=== PATIENT | male | born 1975 | race Caucasian/White ===

== ENCOUNTER 2020-09-12 14:25 | Emergency (ER) | payer BC, SELFPAY ==
[2020-09-12 14:25] VITALS: BP 195/112; PULSE 71; RESP 20; TEMP 36.1; O2SAT 98; BMI 31.4
--- NOTE | 2020-09-12 14:39 | CT_ITS ---
STUDY: CT ABDOMEN AND PELVIS WITHOUT CONTRAST REASON FOR EXAM: Male, 45 years old. Sudden onset left flank/LLQ pain, nausea. Hx hypertension. RADIATION DOSAGE (If Supplied By Facility): CTDIvol = ( 14.89 ) mGy, DLP = ( 885.18 ) mGycm TECHNIQUE: Transaxial images were obtained from the dome of the diaphragm to the symphysis pubis without oral contrast, and without intravenous contrast. Sagittal and coronal images were reconstructed. Individualized dose optimization techniques were used for this CT. COMPARISON: None. FINDINGS: The visualized lung bases are unremarkable. The visualized portions of the heart are within normal limits. Normal liver. Normal gallbladder and extrahepatic biliary system. Normal spleen. Normal pancreas. Normal bilateral adrenal glands. Normal right kidney. There are 2 adjacent calculi in the lower pole calyx of the left kidney. The larger measures 3 mm. There is a 2.7 mm calculus in the distal portion of the left ureter. Minimal fullness of the left ureter with left periureteric stranding. Normal visualized stomach. Normal small intestine. Normal colon. The appendix is visualized and appears normal. There is scattered atherosclerotic calcification of the abdominal aorta, without a demonstrated aneurysm. Normal inferior vena cava. Normal retroperitoneum. Normal urinary bladder. Small bilateral inguinal hernias containing fat. Small umbilical hernia containing fat. Normal osseous structures. CT/Abdomen/Pelvis without Cont IMPRESSION: 2.7 mm calculus in the distal portion of the left ureter with minimal fullness of the left ureter and left periureteric stranding. There are 2 adjacent nonobstructive calculi in the lower pole calyx of the left kidney. Electronically Signed: Gorge Garcia, at 15:33 EST , Service support ,
--- NOTE | 2020-09-12 14:40 | ED.VIS.GEN ---
History of Present Illness Chief Complaint: Flank Pain Informant: Patient Narrative: 45-year-old male states this morning began to have a pain in the left flank left upper quadrant of his abdomen. Sharp and stabbing. Nothing seemed to make it better or worse. Eventually started to subside he was doing good until around 1330 hrs. And the pain returned much more severe in the flank. Is now starting to back off. He does note some associated nausea. He denies any blood in the urine or stool. Normal bowel movements. No fevers. - Past Medical History (1) Elevated blood pressure reading in office with diagnosis of hypertension Status: Chronic (2) Paroxysmal atrial fibrillation Status: Chronic Past Medical History - Allergies and Home Meds Allergies/Adverse Reactions: Allergies No Known Allergies Allergy (Verified 09/12/20 14:39) Primary Care Physician: Marko Lopez MD [Primary Care Provider] - Prior records reviewed: Yes Surgical History: noncontributory Smoking Status: Never smoker Drugs: None Review of Systems General: Denies: Chills, Fever, Sweats Eyes: Denies: Visual changes - bilaterally, Diplopia ENT: Denies: Rhinorrhea, Sore throat Cardiovascular: Denies: Chest pain, Palpitations Respiratory: Denies: Dyspnea, Cough, Dyspnea on exertion Gastrointestinal: Reports: Abdominal pain, Nausea. Denies: Vomiting, Diarrhea, Melena, Hematochezia Genitourinary: Reports: - - Left flank pain. Denies: Dysuria, Hematuria, Frequency Musculoskeletal: Denies: Back pain, Extremity Pain Skin: Denies: Rash, Wounds Neurological: Denies: Headache, Weakness, Numbness Physical Exam Vital Signs/Narrative: Vital Signs Temp Pulse Resp BP Pulse Ox 09/12/20 14:25 96.9 F L 71 20 H 195/112 H 98 Inital Vital Signs reviewed: Yes General: Well nourished, Well developed, No Acute Distress Head: Normocephalic, Atraumatic Eyes: Perrl, EOMI ENT: Moist mucous membranes, No rhinorrhea Neck: Supple, Nontender Cardiovascular: Regular rate, Regular rhythm, No murmurs Respiratory: No distress, CTA bilaterally, Chest nontender Abdomen: Soft, Nontender, Nondistended, Normal bowel sounds Back: Nontender, Normal Inspection Extremities: Nontender, No edema Skin: Normal color, No rash Neurological: Alert, Oriented x3, Cranial nerves II-XII grossly intact, Normal Strength, Normal Sensation Psychological: Normal affect, Normal Mood Diagnostic/Tx/Re-eval Clinical Impression(s) from Imaging Studies Abdomen/Pelvis CT 09/12/20 14:39 IMPRESSION: 2.7 mm calculus in the distal portion of the left ureter with minimal fullness of the left ureter and left periureteric stranding. There are 2 adjacent nonobstructive calculi in the lower pole calyx of the left kidney. Electronically Signed: Gorge Garcia, at 15:33 EST , Service support , Laboratory Last Values WBC 9.1 K/mm3 (4.4-11.0) 09/12/20 14:55 RBC 5.50 M/mm3 (4.6-6.2) 09/12/20 14:55 Hgb 15.8 g/dL (13.0-16.5) 09/12/20 14:55 Hct 47.9 % (40-54) 09/12/20 14:55 MCV 87.1 fL (80-94) 09/12/20 14:55 MCH 28.7 pg (27.0-32.0) 09/12/20 14:55 MCHC 33.0 g/dL (32-36) 09/12/20 14:55 RDW Std Deviation 38.5 fl (35.1-43.9) 09/12/20 14:55 RDW Coeff of [place] 11.9 % (11.6-14.6) 09/12/20 14:55 Plt Count 269 K/mm3 (150-450) 09/12/20 14:55 MPV 11.0 fl (6.2-12.0) 09/12/20 14:55 Immature Gran % (Auto) 0.400 % (0.0-0.9) 09/12/20 14:55 Neut % (Auto) 70.9 % (47-70) H 09/12/20 14:55 Lymph % (Auto) 21.7 % (19-41) 09/12/20 14:55 [place] % (Auto) 5.5 % (0-10) 09/12/20 14:55 Eos % (Auto) 0.9 % (0-5) 09/12/20 14:55 Baso % (Auto) 0.6 % (0-1) 09/12/20 14:55 Absolute Neuts (auto) 6.5 X10^3/uL (2.0-7.7) 09/12/20 14:55 Absolute Lymphs (auto) 1.97 X10^3/uL (0.83-4.51) 09/12/20 14:55 Nucleated RBC % 0 % (0-5) 09/12/20 14:55 Sodium 141 mmol/L (136-145) 09/12/20 14:55 Potassium 3.9 mmol/L (3.5-5.1) 09/12/20 14:55 Chloride 106 mmol/L (98-107) 09/12/20 14:55 Carbon Dioxide 32.0 mmol/L (21.0-32.0) 09/12/20 14:55 Anion Gap 3 (5-15) L 09/12/20 14:55 BUN 20 mg/dL (7-18) H 09/12/20 14:55 Creatinine 1.05 mg/dL (0.70-1.30) 09/12/20 14:55 Estim Creat Clear Calc 108.42 ml/min 09/12/20 14:55 Est GFR (MDRD) Af Amer 99 mL/min (>60) 09/12/20 14:55 Est GFR (MDRD) Non-Af 82 mL/min (>60) 09/12/20 14:55 BUN/Creatinine Ratio 19.0 RATIO (10-20) 09/12/20 14:55 Glucose 99 mg/dL (74-106) 09/12/20 14:55 Calcium 9.3 mg/dL (8.5-10.1) 09/12/20 14:55 Total Bilirubin 0.50 mg/dL (0.20-1.00) 09/12/20 14:55 AST 12 U/L (15-37) L 09/12/20 14:55 ALT 37 U/L (16-61) 09/12/20 14:55 Alkaline Phosphatase 79 U/L (45-117) 09/12/20 14:55 Total Protein 7.7 g/dL (6.4-8.2) 09/12/20 14:55 Albumin 4.0 g/dL (3.2-5.0) 09/12/20 14:55 Globulin 3.7 g/dL (2.2-4.2) 09/12/20 14:55 Albumin/Globulin Ratio 1.1 RATIO (0.9-2.4) 09/12/20 14:55 Lipase 103 U/L (73-393) 09/12/20 14:55 Urine Color Yellow (Yellow) 09/12/20 15:00 Urine Clarity Cloudy (Clear) 09/12/20 15:00 Urine pH 7.0 (5.0 - 8.0) 09/12/20 15:00 Ur Specific [place] 1.010 (1.002-1.030) 09/12/20 15:00 Urine Protein 30 mg/dl (Negative) H 09/12/20 15:00 Urine Glucose (UA) Normal mg/dl (Normal) 09/12/20 15:00 Urine Ketones Negative mg/dl (Negative) 09/12/20 15:00 Urine Occult Blood 250 /ul (Negative) H 09/12/20 15:00 Urine Nitrite Negative (Negative) 09/12/20 15:00 Urine Bilirubin Negative mg/dL (Negative) 09/12/20 15:00 Urine Urobilinogen 1 mg/dl (Normal) H 09/12/20 15:00 Ur Leukocyte Esterase 25 /ul (Negative) H 09/12/20 15:00 Urine RBC > 100 SEEN /hpf (0-5) 09/12/20 15:00 Urine WBC 0-5 SEEN /hpf (0-5) 09/12/20 15:00 Ur Squamous Epith Cells 0-5 SEEN /hpf (0-5) 09/12/20 15:00 Urine Bacteria RARE /hpf (None Seen) 09/12/20 15:00 Urine Mucus 0 SEEN /hpf (<or=2+) 09/12/20 15:00 - Medical Decision Making IV was established the patient received Toradol. His pain is significantly improved. Urinalysis demonstrates hematuria. No obvious infection. Creatinine normal. CT demonstrates a left distal ureteral stone with hydronephroureter perinephric stranding. Patient was updated on the findings and diagnosis. I am going to treat him at home with Toradol, Zofran, Flomax, and a few [place]. Return if worsening or concerns. He is going to be given a urine strainer. Follow-up with urology if not improving ED Disposition - Plan for ED Patient: Disposition: Home or Assisted Living Diagnosis: Ureteral stone with hydronephrosis, Renal colic on left side Instructions: ED Kidney Stone w/ Colic Prescriptions: Tamsulosin HCl [Flomax] 0.4 mg PO QHS #7 cap.er.24h Prescription Printed Hydrocodone Bitart/Apap 5-325 [[place] 5MG-325MG] 1 tab PO Q6H PRN PRN 3 Days #10 tab PRN Reason: Pain Prescription Printed Ketorolac [Toradol] 10 mg PO Q8H PRN #15 tab PRN Reason: Pain Prescription Printed Ondansetron [Zofran Odt] 4 mg PO Q8H PRN PRN #10 tab PRN Reason: Nausea Prescription Printed Referrals: Marko Lopez MD [Primary Care Provider] - As Needed
[2020-09-12] MEDS: Ketorolac 30 MG/ML Syringe IV (14:51)
[2020-09-12] MEDS: Ondansetron 4 MG/2 ML Vial IV (14:51)
[2020-09-12 15:02] LABS: Mucous, Urine 0 SEEN /hpf (<or=2+)
[2020-09-12 15:07] LABS: Color, Urine Yellow (Yellow); Glucose, Dipstick Normal (Normal); Ketone-Dipstick Negative (Negative); Leukocyte Esterase-Dipstick 25 /ul (Negative); Nitrite-Dipstick Negative (Negative); Occult Blood-Urine 250 /ul (Negative); Protein-Dipstick 30 mg/dl (Negative); Urine Bilirubin Dipstick Negative (Negative); Urine Clarity Cloudy (Clear); Urine Urobilinogen 1 mg/dl (Normal)
[2020-09-12 15:09] LABS: Red Blood Cells-Urine > 100 SEEN /hpf (0-5); Squamous Epithelial Cells - UA 0-5 SEEN /hpf (0-5); White Blood Cells 0-5 SEEN /hpf (0-5)
[2020-09-12 15:09] LABS: Absolute Lymphocyte Count 1.97 X10^3/uL (0.83-4.51); Absolute Neutrophil Count 6.5 X10^3/uL (2.0-7.7); Basophil# 0.05 X10^3/uL; Basophil% 0.6 % (0-1); Eosinophil# 0.08 X10^3/uL; Eosinophils% 0.9 % (0-5); Hematocrit 47.9 % (40-54); Hemoglobin 15.8 g/dL (13.0-16.5); Lymphocyte # 1.97 X10^3/ul (4.0); Lymphocyte % 21.7 % (19-41); Mean Corpuscular Hgb 28.7 pg (27.0-32.0); Mean Corpuscular Volume 87.1 fL (80-94); Monocyte% 5.5 % (0-10); NRBC Flagged by Analyzer 0 % (0-5); Neutrophil # 6.45 X10^3/uL (2.7-7.7); Neutrophil % 70.9 % (47-70); Platelet Count 269 K/mm3 (150-450); RBC Distribution Width CV 11.9 % (11.6-14.6); RBC Distribution Width SD 38.5 fl (35.1-43.9); White Blood Count 9.1 K/mm3 (4.4-11.0)
[2020-09-12 15:10] LABS: Bacteria RARE /hpf (None Seen)
[2020-09-12 15:26] LABS: ALB/GLOB Ratio 1.1 RATIO (0.9-2.4); AST(SGOT) 12 U/L (15-37); Alanine Aminotransfer ALT/SGPT 37 U/L (16-61); Alkaline Phosphatase 79 U/L (45-117); Anion Gap 3 (5-15); BUN 20 mg/dL (7-18); Calcium,Total 9.3 mg/dL (8.5-10.1); Chloride 106 mmol/L (98-107); Creatinine, Serum 1.05 mg/dL (0.70-1.30); EST Glomerular Filtration Rate 82 mL/min (>60); Est Glom Filt Rate - Afr Amer 99 mL/min (>60); Estimated Creatinine Clearance 108.42 ml/min; Globulin 3.7 g/dL (2.2-4.2); Glucose 99 mg/dL (74-106); Lipase 103 U/L (73-393); Potassium 3.9 mmol/L (3.5-5.1); Protein, Total 7.7 g/dL (6.4-8.2); Sodium Level 141 mmol/L (136-145)
[2020-09-12 16:06] VITALS: O2SAT 99
== END 2020-09-12 16:07 | disposition home or self-care (01) ==
PROVIDERS: Emergency Provider Emergency Medicine; PCP Family Medicine
DX: N13.2 Hydronephrosis with renal and ureteral calculous obstruction (principal); I48.0 Paroxysmal atrial fibrillation; I10 Essential (primary) hypertension; Z79.82 Long term (current) use of aspirin; Z79.899 Other long term (current) drug therapy
CPT/HCPCS: 74176; 80053; 81001; 83690; 85025; 96374; 96375; 99283; A4216; J2405